=== PATIENT | female | born 1985 | race Hispanic/Latino ===

== ENCOUNTER 2025-02-04 15:36 | Inpatient (IN) | payer OTHER ==
[~2025-02-04] VITALS: Ht 160 cm; Wt 93.0 kg
[2025-02-04 15:45] VITALS: TEMP 98.3
[2025-02-04 16:12] LABS: BASOPHILS % 0.5 % (0.0-1.0); EOSINOPHILS % 1.2 % (0.0-6.0); LYMPHOCYTES % 23.2 % (18.0-39.1); MONOCYTES % 11.5 % (4.4-11.3); NEUTROPHILS % 63.6 % (38.7-80.0); RED CELL DISTRIBUTION WIDTH 13.5 % (11.7-14.4)
[2025-02-04 16:34] LABS: INR 0.91
[2025-02-04] MEDS: SODIUM CHLORIDE 0.9% 1000ML 1,000 ML IV STA (16:36)
[2025-02-04] MEDS: ONDANSETRON HCL INJ 2MG/ML 2ML 2 MG/ML VIAL IV STA (16:38)
[2025-02-04 16:42] LABS: EST GLOMERULAR FILTRATION RATE 107 ML/MIN (>=60)
[2025-02-04] MEDS: KETOROLAC TROMETHAMINE 30 MG/ML VIAL IV STA (16:49)
[2025-02-04] MEDS ORDERED: IOPAMIDOL 370 MG/ML 100 ML INFUS..BTL INJ ONE (16:59)
[2025-02-04] MEDS ORDERED: Morphine 4mg INJECTION 4 MG/ML INJ IV PRN (19:45)
[2025-02-04] MEDS ORDERED: ONDANSETRON HCL INJ 2MG/ML 2ML 2 MG/ML VIAL IV PRN (19:45)
[2025-02-04] MEDS: SODIUM CHLORIDE 0.9% 1000ML 1,000 ML IV SCH (20:44)
[2025-02-04 20:45] VITALS: PULSE 71; RESP 18
[2025-02-04 22:13] VITALS: BP 138/77; PULSE 65; RESP 18; TEMP 98.4; O2SAT 100
[2025-02-04 22:15] VITALS: BP 123/71; PULSE 68; RESP 20; TEMP 98.4; O2SAT 100
[2025-02-04 23:59] VITALS: BP 138/77; PULSE 65; RESP 18; TEMP 98.4; O2SAT 100
[2025-02-04] MEDS: MAGNESIUM HYDROXIDE 30 ML UDC PO SCH (23:59)
[2025-02-05] VITALS (7 sets, daily range): BP systolic 121–140; BP diastolic 77–86; PULSE 59–75; RESP 18–20; TEMP 97.5–99; O2SAT 96–100
[2025-02-05] MEDS: KETOROLAC TROMETHAMINE 30 MG/ML VIAL IM PRN
[2025-02-05] MEDS ORDERED: HYDRALAZINE HCL 20 MG/ML VIAL IV PRN (00:30)
[2025-02-05] MEDS: MINERAL OIL 132 ML BTL PR ONE (02:22)
[2025-02-05] MEDS: POTASSIUM CHLORIDE 10MEQ EA PO ONE ×2 (05:14→05:35)
[2025-02-05] MEDS: PEG (High)/E-LYTE SOLN 4,000 ML BTL PO STA (06:36)
[2025-02-05 07:03] LABS: BASOPHILS % 0.5 % (0.0-1.0); EOSINOPHILS % 2.0 % (0.0-6.0); LYMPHOCYTES % 32.4 % (18.0-39.1); MONOCYTES % 14.1 % (4.4-11.3); NEUTROPHILS % 50.7 % (38.7-80.0); RED CELL DISTRIBUTION WIDTH 13.6 % (11.7-14.4)
[2025-02-05 07:56] LABS: EST GLOMERULAR FILTRATION RATE 118.0 ML/MIN (>=60)
[2025-02-05 08:37] LABS: CHOL/HDL RATIO 4.1 (3.0-3.6); LDL CHOLESTEROL 65.0 MG/DL (60-130); PHOSPHORUS 3.7 MG/DL (2.3-4.7)
[2025-02-05] MEDS: MAGNESIUM HYDROXIDE 30 ML UDC PO SCH (09:00)
[2025-02-05] MEDS: HYDROCORTISONE 2.5% PR CRM 1 OZ TUBE PR SCH (10:59)
[2025-02-05] MEDS: FAMOTIDINE 20 MG TAB PO SCH (10:59)
[2025-02-05] MEDS: LIDOCAINE HCL 5% OINMENT 35.44 GM TUBE TP SCH (11:00)
[2025-02-05] MEDS: POTASSIUM CHLORIDE 20MEQ/100ML 100 ML IV SCH (11:01)
[2025-02-05 11:47] LABS: % IRON SATURATION 10.0 % (15-50)
[2025-02-05] MEDS: POTASSIUM CHLORIDE 20 MEQ TAB CR PO ONE (13:59)
[2025-02-05] MEDS: IRON SUCROSE 100 MG in SODIUM CHLORIDE 0.9% 100 ML IV SCH (15:20)
[2025-02-06] VITALS (7 sets, daily range): BP systolic 123–151; BP diastolic 78–82; PULSE 57–65; RESP 17–18; TEMP 97.6–98.4; O2SAT 98–100
[2025-02-06] MEDS: CALCIUM CARBONATE 500 MG CHEWABLE TABS PO PRN (22:28)
[2025-02-07] VITALS (9 sets, daily range): BP systolic 115–130; BP diastolic 72–84; PULSE 55–72; RESP 16–18; TEMP 97.4–98.6; O2SAT 96–100
[2025-02-07] MEDS: METOCLOPRAMIDE HCL 10 MG TAB PO SCH (06:12)
[2025-02-07 07:37] LABS: BASOPHILS % 0.3 % (0.0-1.0); EOSINOPHILS % 2.5 % (0.0-6.0); LYMPHOCYTES % 37.6 % (18.0-39.1); MONOCYTES % 11.7 % (4.4-11.3); NEUTROPHILS % 47.9 % (38.7-80.0); RED CELL DISTRIBUTION WIDTH 13.2 % (11.7-14.4)
[2025-02-07] MEDS: PANTOPRAZOLE SOD 40 MG TABEC PO SCH (08:04)
[2025-02-07 08:18] LABS: EST GLOMERULAR FILTRATION RATE 116.0 ML/MIN (>=60)
[2025-02-07] MEDS: POTASSIUM CHLORIDE 20 MEQ TAB CR PO STA (12:51)
[2025-02-08] VITALS (7 sets, daily range): BP systolic 106–128; BP diastolic 65–84; PULSE 58–88; RESP 18–20; TEMP 97.6–98.6; O2SAT 98–100
[2025-02-08] MEDS ORDERED: METOCLOPRAM5 MG/5 ML PO (15:41)
[2025-02-08] MEDS ORDERED: COLACE100 MG/10 PO (15:41)
[2025-02-08] MEDS ORDERED: KETOROLAC TROME10 MG PO (15:41)
[2025-02-08] MEDS ORDERED: FAMOTIDINE20 MG PO (15:46)
[2025-02-08] MEDS: DOCUSATE SODIUM 100 MG CAP PO SCH (17:29)
== END 2025-02-08 18:00 | disposition home or self-care (01) | DRG 948 ==
LOC: ER 15:56 → ERHOLD 19:40 → MED/SURG2 22:10
PROVIDERS: ADMIT Internal Medicine; ATTEND Internal Medicine
DX: G89.18 Other acute postprocedural pain (principal); D64.9 Anemia, unspecified; E87.6 Hypokalemia; R15.9 Full incontinence of feces; R79.89 Other specified abnormal findings of blood chemistry; R00.0 Tachycardia, unspecified; Y84.8 Other medical procedures as the cause of abnormal reaction of the patient, or of later complication, without mention of misadventure at the time of the procedure
CPT/HCPCS: 36415; 71045; 74177; 80048; 80053; 80061; 82550; 82607; 82728; 82746; 83036; 83540; 83735; 83880; 84100; 84439; 84443; 84466; 84484; 84702; 85025; 85045; 85379; 85610; 85730; 93005; 94799; 99252; 99284; J1756; J1885; J2405; J2470; J3480; J7030; J7050; Q9967